=== PATIENT | female | born 1955 | race Caucasian/White ===

== ENCOUNTER → 2022-10-23 | Outpatient (CLI) | payer MEDICARE, OTHER ==
[2022-10-23 11:54] LABS: African American GFR (CKD) >90 (>60 ml/min/1.73 sqM); Blood Urea Nitrogen 19 mg/dL (7-17); Non-African American GFR(CKD) >90 (>60 ml/min/1.73 sqM)
--- NOTE | 2022-10-23 14:34 | CT ---
EXAMINATION TYPE: CT cervical spine wo/w con DATE OF EXAM: 10/23/2022 COMPARISON: None HISTORY: neck and low back pain. hx of sxs on both. CT DLP: combined 2708.90. mGycm Contrast: Isovue 300 100 mL Unenhanced followed by contrast CT of the cervical spine was performed with bone and soft tissue wind ow settings submitted. Coronal and sagittal reconstruction is obtained. C2-3: Within normal limits C3-4: Postsurgical changes of anterior cervical discectomy and fusion. Intervertebral body spacers in place as well as anterior fixation plate. There is normal alignment. Decompressive laminectomy also noted. Pedicular screws are also in place. C4-5:Postsurgical changes of anterior cervical discectomy and fusion. Intervertebral body spacers in place as well as anterior fixation plate. There is normal alignment. Decompressive laminectomy also n oted. Pedicular screws are also in place. C5-6: There is postsurgical change of decompressive laminectomy with pedicular screws in place. There is grade 1 anterolisthesis of C5 on C6 of 4 mm. I do not see evidence for central stenosis or disc h erniation. C6-7: There is mild degenerative disc space narrowing with ventral and dorsal spondylosis. There is m ild loss of height involving the superior endplate of C7 which appears to be chronic in nature. There is ventral spondylosis. Mild posterior disc bulge without herniation or central stenosis. C7-T1: Within normal limits IMPRESSION: 1. Postoperative changes as discussed above 2. Anterior subluxation of C5 on C6 of 4 mm. A mild loss of height superior endplate of C7 which appe ars to be chronic in nature.
--- NOTE | 2022-10-23 14:41 | CT ---
EXAMINATION TYPE: CT lumbar spine wo/w con DATE OF EXAM: 10/23/2022 COMPARISON: None HISTORY: neck and low back pain. hx of sxs on both CT DLP: combined 2708.90 mGycm Automated exposure control for dose reduction was used. CONTRAST: CT scan of the lumbar is performed without and with IV Contrast, patient injected with 100 mL of Isov ue 300. Enhanced CT of the lumbar spine was performed. Bone and soft tissue window settings are submitted as well as coronal and sagittal reconstructions. L1-L2: There is mild disc desiccation. Inferior endplate Schmorl node is seen at L1. Mild posterior d isc bulge without herniation or central stenosis. L2-L3: There is evidence of vacuum change with severe degenerative disc disease. Degenerative endplat e sclerosis seen. Pedicular screws are in place. Streak artifact limits evaluation. I do not see evid ence for definite central stenosis or disc herniation. L3-L4: Severe degenerative disc disease. Decompressive laminectomy. Pedicular screws resulting in ext ensive beam hardening artifact. Alignment is anatomic. No definite evidence for recurrent central rosalinda nosis or disc herniation. L4-L5: Decompressive laminectomy with discectomy change. Intervertebral spacer is in place. Pedicular screws noted. There appears to be grade 1 retrolisthesis of L4 and L5 of 5 mm. Streak artifact limit s evaluation. No definite central stenosis. L5-S1: Discectomy change with pedicular screws. Intervertebral body spacers in place with normal alig nment. Streak artifact limits evaluation. No definite recurrent central stenosis or disc herniation s een. IMPRESSION: 1. Stents of postoperative change with limiting. Hardening artifact.
== END | disposition home or self-care (01) ==
LOC: RADCTMAIN 11:09
PROVIDERS: ATTEND Physical Medicine & Rehabilitation Pain Medicine
DX: S13.160A Subluxation of C5/C6 cervical vertebrae, initial encounter (principal); M96.1 Postlaminectomy syndrome, not elsewhere classified; R29.890 Loss of height; R20.8 Other disturbances of skin sensation
CPT/HCPCS: 82565; 84520; 72127; 72133; 36415; Q9967

== ENCOUNTER 2022-11-20 11:42 | Day surgery (SDC) | payer MEDICARE, OTHER ==
[~2022-11-20 11:42] MED LIST: DEXAMETHASONE SOD PHOSPHATE 4 MG/ML 1 ML VIAL IV ONE; LACTATED RINGERS 1,000 ML IV SCH; LIDOCAINE 1% (10MG/ML) FOR IV START INTRADERMA PRN; ONDANSETRON 4 MG/2 ML VIAL IVP ONE; Pre Op ABX Message 1 EACH MISC MISCELLANE ONE; droPERidol 5 MG/2 ML VIAL IVP ONE
[2022-11-20] MEDS ORDERED: fentaNYL (PF) 50 MCG/ML 2 ML AMP ONE (12:55)
[2022-11-20] MEDS ORDERED: PROPOFOL 10 MG/ML 20 ML VIAL IV ONE (12:55)
[2022-11-20] MEDS ORDERED: LIDOCAINE 2% INJ 20 MG/ML (2 ML VIAL) ONE (12:55)
[2022-11-20] MEDS ORDERED: PHENYLEPHRINE-0.9% NACL SYG 1,000 MCG/10 ML SYRINGE ONE (12:55)
[2022-11-20] MEDS ORDERED: SUCCINYLCHOLINE CHLORIDE 200 MG/10 ML VIAL IV ONE (12:55)
[2022-11-20] MEDS ORDERED: SODIUM CHLORIDE 0.9% 50 ML with ceFAZolin 2,000 MG IV ONE ×2 (13:00)
[2022-11-20] MEDS ORDERED: ceFAZolin 1,000 MG VIAL ONE (13:01)
[2022-11-20] MEDS ORDERED: SODIUM CHLORIDE 0.9% 100 ML BAG ONE (13:01)
[2022-11-20 15:22] VITALS: TEMP 98
[2022-11-20] MEDS: HYDROmorphone 0.5 MG/0.5 ML SYRINGE IVP PRN ×4 (15:24→15:46)
[2022-11-20] MEDS ORDERED: LACTATED RINGERS 1,000 ML IV ONE (15:41)
[2022-11-20 16:16] VITALS: RESP 16
[2022-11-20 16:59] VITALS: BP 128/70; PULSE 76
--- NOTE | 2022-11-20 22:52 | OP ---
OPERATIVE REPORT DATE OF SERVICE : 11/20/2022 PREOPERATIVE DIAGNOSES: 1. Ruptured silicone breast implants. 2. Bilateral severe capsular contracture of breast. 3. Acquired deformity of right and left reconstructed breasts. 4. Personal history of breast cancer. POSTOPERATIVE DIAGNOSES: 1. Ruptured right breast implant. 2. Acquired deformity of right and left reconstructed breasts. 3. Severe bilateral breast capsular contractures. 4. Personal history of breast cancer. OPERATIVE PROCEDURES: 1. Remove ruptured right breast implant and capsule. 2. Removal of left breast implant. 3. Revision of right reconstructed breast. 4. Revision left reconstructed breast. 5. Delayed reconstruction right breast with insertion of tissue science professor and subsequent outpatient expansion. 6. Delayed reconstruction left breast with insertion of tissue science professor, subsequent outpatient expansion. OPERATIVE INDICATIONS: The patient is a 67-year-old female who underwent bilateral mastectomy procedures in 2010 with severe postoperative complications and sepsis. She required several surgeries, she suffered with misshapen reconstructed breasts for some time. She presented to my office due to acquired deformities. She has very tight capsular contractures of the right and left reconstructed breast. Clinically on exam, the breast implants are ruptured due to the distorted shape. The patient has been counseled as to the surgery due to the severe capsular contracture, the breasts are very high with complete loss of the lower one half of the reconstructed breast, which cannot be recreated without further expansion. The patient is aware her breast implants require removal and she will require additional tissue expansion to obtain proper coverage for breast reconstruction. The patient is aware of other options and has elected to proceed with the reconstructive path. She has elected to proceed with today's surgery and is aware of potential risks and complications including, but not limited to, hematoma, seroma, wound infection, healing problems, among others. She has requested to perform the surgery. OPERATIVE PROCEDURE SUMMARY: The patient was seen in the preoperative area, markings made, procedure reviewed. All questions were answered. She was transported to the operating room where she was placed in supine position following induction of general endotracheal anesthesia. Patient was prepped and draped in usual fashion. The surgery was initiated on the right side and then high in the prior transverse mastectomy scar, a line was drawn here in the middle third of the scar, incision made following the line present, dividing the skin in full-thickness fashion with 10 blade scalpel followed by cauterization to divide subcutaneous tissue and then elevate skin and subcutaneous tissue off the underlying muscle flap and scar layer tissue. This dissection was extensive to revise contour irregularities and contracture from the scar. Once this was completed, a very low transverse incision was made through the muscle flap scar contracture layer exposing the implant. The implant was ruptured. Towels were placed around the site in the implant and ruptured contents removed, as much capsule as possible was excised with cautery and the capsular structure was sent to pathology separately. Implants were also sent to pathology today. Hemostasis maintained with cautery while dissecting the operating, irrigation was now performed, pulsed irrigation with several liters of fluid. Gloves were changed as well as towels removed that were soiled with silicone extravasation. The site was packed open with saline moistened laparotomy sponges. Attention was turned towards the left side in similar fashion. Transverse incision, diagram was drawn following the patient's transverse mastectomy scar in the middle one third dividing the skin in full-thickness fashion. A 10-blade scalpel used, cauterization to divide subcutaneous tissue until reaching the muscle flap scar layer. Skin and subcutaneous tissue flaps were elevated off this, extensive dissection performed to lose as much of scar tissue from the skin subcutaneous tissue as possible to optimize reconstruction. Once this was completed, very low transverse incision was made with muscle flap scar layer exposing the implant. The implant clearly did not appear normal, but did not have extravasation of silicone, the implant was removed intact without leakage of silicone, multiple, extensive dissections were now performed on the left and right side releasing the capsular contracture. At first, the capsular layer where it joined the chest wall circumferentially and then multiple cruciate incisions made through the capsular structure on both the right and left side, hemostasis maintained with cautery while dissecting, irrigation was performed with pulsed irrigation unit on the left side and again on the right side. All tissue remained and appeared healthy. There was no evidence of remaining silicone on either site. The additional dissection was performed to optimize positioning of the expanders. This was extensive dissection inferiorly and medially on both sides with cautery. Once completed, the cavities were sized. Gloves changed again and tissue expanders were opened on the field. Both of the expanders were from a [employer] tissue science professor line model 133S FV 400 mL, reference #[id number]. The left-sided serial number was [id number], and the right-sided serial number was [id number]. Each science professor was opened on the field, irrigated with saline, all air extracted. Initially 100 mL of saline instilled in each science professor, they were placed for testing reconstructive cavity. Additional dissection was required on each side to obtain symmetry and optimal position. Once this was achieved that the expanders were then secured in position to the chest wall using the 3 inferior suture tabs and 2-0 Vicryl suture. With that complete, a 19 round Carroll channel drain was opened on the field and placed in the surgical field on the right and left reconstructed breast site, brought through separate stab incisions. Right and left anterior lateral chest wall sutures placed with 2-0 Prolene, cut to appropriate like. The remaining muscle flap tissue on each side was secured to the inferior skin subcutaneous tissue flap as these flaps had excellent viability and thickness. These were closed using interrupted 3-0 Vicryl sutures covering each science professor. The deep dermis was then approximated using inverted interrupted 4-0 Monocryl followed by closure of superficial dermis with epidermis running 5-0 Prolene end-to-side. Drains were connected to close bulb suction. Surgical field was now cleansed with saline and dried. The reconstruction sites were inspected . At this point, an additional 100 mL was added to each science professor, appeared the optimal volume making a final volume in each science professor 200 mL, 0.9 normal saline. The bandages were now placed using Kerlix squares, drain sponges, secured with 3-0 Medipore tape and ABD pad over the upper pole of each reconstructed breast followed by positioning 4-inch Jonh bandage to provide slight downward compression. The patient was THEN awakened from her anesthetic, extubated, and transferred to recovery room in good condition with stable vital signs. ESTIMATED BLOOD LOSS: For the procedure was 50 mL. COMPLICATIONS: There were no complications. The final fill tissue science professor was 200 mL of 0.9 normal saline. MMODL / IJN: [id number] /
== END 2022-11-20 17:05 | disposition home or self-care (01) ==
LOC: OR 11:42
PROVIDERS: ATTEND Plastic Surgery
DX: T85.49XA Other mechanical complication of breast prosthesis and implant, initial encounter (principal); Z85.3 Personal history of malignant neoplasm of breast; I10 Essential (primary) hypertension; E78.5 Hyperlipidemia, unspecified; J44.9 Chronic obstructive pulmonary disease, unspecified; K21.9 Gastro-esophageal reflux disease without esophagitis; Z79.899 Other long term (current) drug therapy
CPT/HCPCS: 19380; 14000; C1889; J0330; J1100; J2405; J0690; J3010; J2704; J1170; J2001; J2371; 88300; 88305

== ENCOUNTER 2022-12-08 09:43 | Emergency (ER) | payer MEDICARE, OTHER ==
[2022-12-08 10:00] VITALS: RESP 18
[2022-12-08] MEDS ORDERED: IBUPROFEN 600 MG TAB PO STA (10:51)
[2022-12-08] MEDS ORDERED: ACETAMINOPHEN TAB 500 MG TAB PO STA (10:51)
[2022-12-08] MEDS ORDERED: cefTRIAXone IN SWFI 1,000 MG/10 ML SYRINGE IVP STA (10:51)
--- NOTE | 2022-12-08 11:20 | ED ---
General Adult HPI - General Chief complaint: Recheck/Abnormal Lab/Rx Stated complaint: Redness around Drain tubs,post op 11/28 Time Seen by Provider: 12/08/22 09:55 Source: patient, RN notes reviewed, old records reviewed Mode of arrival: ambulatory Limitations: no limitations - History of Present Illness Initial comments: This is a 67-year-old female that presents emergency Department with some redness and pain and drainage around the left drain in the breast. Patient had breast reconstructive surgery on November 28. Patient had a previous mastectomy bilaterally. Patient states she's also had a low-grade fever and just overall is feeling a little worse. Patient denies any difficulty breathing first breath per patient denies any abdominal pain. - Related Data Home Medications Medication Instructions Recorded Confirmed Albuterol Inhaler [Ventolin Hfa 90 mcg INHALATION DAILY PRN 11/16/22 11/20/22 Inhaler] Calcium Carbonate/Vitamin D3 1 tab PO QAM 11/16/22 11/20/22 [Calcium 600 mg-D3 20 mcg (800 unit)] Exipure 300 mg PO QAM 11/16/22 11/20/22 Gabapentin 600 mg PO TID 11/16/22 11/20/22 HYDROcodone/APAP 5-325MG [[place] 1 tab PO BID PRN 11/16/22 11/20/22 5-325] Morphine Sulfate ER [Ms Contin] 15 mg PO BID 11/16/22 11/20/22 Multivitamin/Iron/Folic Acid 1 tab PO QAM 11/16/22 11/20/22 [Centrum Adults Tablet] Omeprazole [PriLOSEC] 40 mg PO DAILY PRN 11/16/22 11/20/22 Simvastatin 10 mg PO HS 11/16/22 11/20/22 Spironolactone 50 mg PO BID 11/16/22 11/20/22 Tamsulosin HCl [Flomax] 0.4 mg PO QAM 11/16/22 11/20/22 Umeclidinium Squires [Incruse 1 puff INHALATION DAILY PRN 11/16/22 11/20/22 Ellipta] buPROPion HCL [buPROPion HCL SR] 100 mg PO BID 11/16/22 11/20/22 hydroCHLOROthiazide 25 mg PO QAM 11/16/22 11/20/22 methocarbamoL [Methocarbamol] 750 mg PO TID 11/16/22 11/20/22 rOPINIRole HCL [Requip] 1 mg PO HS 11/16/22 11/20/22 Previous Rx's Medication Instructions Recorded HYDROcodone/APAP 5-325MG [[place] 1 tab PO Q6HR PRN 7 Days #28 tab 11/20/22 5-325] Bacitracin Zinc Oint 1 applic TOPICAL BID #28 gm 12/08/22 Sulfamethox-Tmp 800-160Mg [Bactrim 1 each PO Q12HR #20 tab 12/08/22 DS 800-160 mg] Allergies Allergy/AdvReac Type Severity Reaction Status Date / Time pollen extracts Allergy Dyspnea Verified 12/08/22 10:00 Review of Systems ROS Statement: Those systems with pertinent positive or pertinent negative responses have been documented in the HPI. ROS Other: All systems not noted in ROS Statement are negative. Past Medical History Past Medical History: Asthma, Cancer, COPD, Hypertension Additional Past Medical History / Comment(s): breast cancer 2009 History of Any Multi-Drug Resistant Organisms: None Reported, MRSA Date of last positivie culture/infection: 2017 Past Surgical History: Back Surgery, Breast Surgery, Joint Replacement, Orthopedic Surgery Past Psychological History: No Psychological Hx Reported Smoking Status: Former smoker Past Alcohol Use History: Occasional Past Drug Use History: Marijuana General Exam - General Exam Comments Initial Comments: GENERAL: Patient is well-developed and well-nourished. Patient is nontoxic and well- hydrated and is in mild distress. ENT: Neck is soft and supple. No significant lymphadenopathy is noted. Oropharynx is clear. Moist mucous membranes. Neck has full range of motion without eliciting any pain. EYES: The sclera were anicteric and conjunctiva were pink and moist. Extraocular movements were intact and pupils were equal round and reactive to light. Eyelids were unremarkable. PULMONARY: Unlabored respirations. Good breath sounds bilaterally. No audible rales rhonchi or wheezing was noted. CARDIOVASCULAR: There is a regular rate and rhythm without any murmurs gallops or rubs. Patient's left and right breasts have drained out of the left drain is circled by erythema and some tenderness and some drainage ABDOMEN: Soft and nontender with normal bowel sounds. SKIN: Skin is clear with no lesions or rashes and otherwise unremarkable. NEUROLOGIC: Patient is alert and oriented x3. Cranial nerves II through XII are grossly intact. Motor and sensory are also intact. Normal speech, volume and content. Symmetrical smile. MUSCULOSKELETAL: Normal extremities with adequate strength and full range of motion. LYMPHATICS: No significant lymphadenopathy is noted PSYCHIATRIC: Normal psychiatric evaluation. Limitations: no limitations Course Vital Signs 12/08/22 12/08/22 12/08/22 09:52 11:51 12:30 Temperature 99.9 F H 99.5 F Pulse Rate 91 95 92 Respiratory 18 18 Rate Blood Pressure 101/66 128/69 103/60 O2 Sat by Pulse 97 97 95 Oximetry Medical Decision Making - Medical Decision Making EKG was interpreted by myself EKG shows a sinus rhythm at 96 bpm FL interval is 170 [id number] QT interval 311 QTC is 364. Patient's EKG shows no ST segment elevation or depression Was pt. sent in by a medical professional or institution (, PA, UTILITIES GROUND WORKER, urgent care, hospital, or [facility]...) When possible be specific @ -No Did you speak to anyone other than the patient for history (EMS, parent, family, police, friend...)? What history was obtained from this source @ -No Did you review nursing and triage notes (agree or disagree)? Why? @ -I reviewed and agree with nursing and triage notes Were old charts reviewed (outside hosp., previous admission, EMS record, old EKG, old radiological studies, urgent care reports/EKG's, [facility] records)? Report findings @ -No old charts were reviewed Differential Diagnosis (chest pain, altered mental status, abdominal pain women, abdominal pain men, vaginal bleeding, weakness, fever, dyspnea, syncope, headache, dizziness, GI bleed, back pain, seizure, CVA, palpatations, mental health, musculoskeletal)? @ -Differential Fever: Pneumonia, viral URI, endocarditis, myocarditis, pericarditis, otitis, sinusi tis, peritonsillar Abscess, retropharyngeal Abscess, epiglottitis, peritonitis, appendicitis, Danni cystitis, diverticulitis, hepatitis, colitis, UTI, PID, TOA, pyelonephritis, prostatitis, epididymitis, meningitis, encephalitis, pulmonary embolism, CVA, thyroid storm, pancreatitis, adrenal crisis, cavernous sinus thrombosis, this is not meant to be an all-inclusive list. EKG interpreted by me (3pts min.). @ -As above X-rays interpreted by me (1pt min.). @ -Chest x-ray shows no acute abnormality CT interpreted by me (1pt min.). @ -None done U/S interpreted by me (1pt. min.). @ -None done What testing was considered but not performed or refused? (CT, X-rays, U/S, labs)? Why? @ -None What meds were considered but not given or refused? Why? @ -None Did you discuss the management of the patient with other professionals (aparna dove i.e. , PA, UTILITIES GROUND WORKER, lab, RT, psych nurse, psychosocial rehabilitation counselor, composition instructor, teacher, chemical instrumentation officer, human services case manager)? Give summary @ -We consulted with Dr. Monk and he wanted the patient to follow-up on Sunday and have the patient placed on Bactrim and give the patient some bacitracin Was smoking cessation discussed for >3mins.? @ -No Was critical care preformed (if so, how long)? @ -No Were there social determinants of health that impacted care today? How? (Homelessness, low income, unemployed, alcoholism, drug addiction, transportation, low edu. Level, literacy, decrease access to med. care, prison, rehab)? @ -No Was there de-escalation of care discussed even if they declined (Discuss DNR or withdrawal of care, Hospice)? DNR status @ -No What co-morbidities impacted this encounter? (DM, HTN, Smoking, COPD, CAD, Cancer, CVA, ARF, Chemo, Hep., AIDS, mental health diagnosis, sleep apnea, morbid obesity)? @ -None Was patient admitted / discharged? Hospital course, mention meds given and route, prescriptions, significant lab abnormalities, going to OR and other per tinent info. @ -Area around the drain on the left looked infected with an early cellulitis. I gave the patient 2 g of Rocephin. I will send the patient home with Bactroban and bacitracin Undiagnosed new problem with uncertain prognosis? @ -No Drug Therapy requiring intensive monitoring for toxicity (Heparin, Nitro, Insu tank, Cardizem)? @ -No Were any procedures done? @ -No Diagnosis/symptom? @ -Cellulitis Acute, or Chronic, or Acute on Chronic? @ -Acute Uncomplicated (without systemic symptoms) or Complicated (systemic symptoms)? @ -Complicated Side effects of treatment? @ -No Exacerbation, Progression, or Severe Exacerbation? @ -No Poses a threat to life or bodily function? How? (Chest pain, [place], [place], pneumonia, PE, COPD, DKA, ARF, appy, cholecystitis, CVA, Diverticulitis, Homicidal, Suicidal, threat to staff... and all critical care pts) @ -No - Lab Data Result diagrams: 12/08/22 11:21 12/08/22 11:21 Lab Results 12/08/22 12/08/22 12/08/22 Range/Units 11:21 11:21 11:21 WBC 10.5 (3.8-10.6) k/uL RBC 4.29 (3.80-5.40) m/uL Hgb 14.0 (11.4-16.0) gm/dL Hct 40.7 (34.0-46.0) % MCV 94.9 (80.0-100.0) fL MCH 32.7 (25.0-35.0) pg MCHC 34.5 (31.0-37.0) g/dL RDW 12.8 (11.5-15.5) % Plt Count 197 (150-450) k/uL MPV 6.9 Neutrophils % 84 % Lymphocytes % 9 % Monocytes % 3 % Eosinophils % 3 % Basophils % 1 % Neutrophils # 8.8 H (1.3-7.7) k/uL Lymphocytes # 1.0 (1.0-4.8) k/uL Monocytes # 0.3 (0-1.0) k/uL Eosinophils # 0.3 (0-0.7) k/uL Basophils # 0.1 (0-0.2) k/uL PT 10.1 (9.0-12.0) sec INR 0.9 (<1.2) APTT 24.2 (22.0-30.0) sec Sodium 136 L (137-145) mmol/L Potassium 4.3 (3.5-5.1) mmol/L Chloride 100 (98-107) mmol/L Carbon Dioxide 27 (22-30) mmol/L Anion Gap 9 mmol/L BUN 19 H (7-17) mg/dL Creatinine 0.58 (0.52-1.04) mg/dL Est GFR (CKD-EPI)AfAm >90 (>60 ml/min/1.73 sqM) Est GFR (CKD-EPI)NonAf >90 (>60 ml/min/1.73 sqM) Glucose 85 (74-99) mg/dL Plasma Lactic Acid Navarro (0.7-2.0) mmol/L Calcium 9.3 (8.4-10.2) mg/dL Total Bilirubin 0.8 (0.2-1.3) mg/dL AST 32 (14-36) U/L ALT 23 (4-34) U/L Alkaline Phosphatase 71 (38-126) U/L Total Protein 7.7 (6.3-8.2) g/dL Albumin 4.5 (3.5-5.0) g/dL 12/08/22 Range/Units 11:21 WBC (3.8-10.6) k/uL RBC (3.80-5.40) m/uL Hgb (11.4-16.0) gm/dL Hct (34.0-46.0) % MCV (80.0-100.0) fL MCH (25.0-35.0) pg MCHC (31.0-37.0) g/dL RDW (11.5-15.5) % Plt Count (150-450) k/uL MPV Neutrophils % % Lymphocytes % % Monocytes % % Eosinophils % % Basophils % % Neutrophils # (1.3-7.7) k/uL Lymphocytes # (1.0-4.8) k/uL Monocytes # (0-1.0) k/uL Eosinophils # (0-0.7) k/uL Basophils # (0-0.2) k/uL PT (9.0-12.0) sec INR (<1.2) APTT (22.0-30.0) sec Sodium (137-145) mmol/L Potassium (3.5-5.1) mmol/L Chloride (98-107) mmol/L Carbon Dioxide (22-30) mmol/L Anion Gap mmol/L BUN (7-17) mg/dL Creatinine (0.52-1.04) mg/dL Est GFR (CKD-EPI)AfAm (>60 ml/min/1.73 sqM) Est GFR (CKD-EPI)NonAf (>60 ml/min/1.73 sqM) Glucose (74-99) mg/dL Plasma Lactic Acid [place]arro 1.1 (0.7-2.0) mmol/L Calcium (8.4-10.2) mg/dL Total Bilirubin (0.2-1.3) mg/dL AST (14-36) U/L ALT (4-34) U/L Alkaline Phosphatase (38-126) U/L Total Protein (6.3-8.2) g/dL Albumin (3.5-5.0) g/dL Disposition Clinical Impression: Cellulitis of drainage site following surgery Disposition: HOME SELF-CARE Condition: Good Prescriptions: Bacitracin Zinc Oint 1 applic TOPICAL BID #28 gm Sulfamethox-Tmp 800-160Mg [Bactrim DS 800-160 mg] 1 each PO Q12HR #20 tab Is patient prescribed a controlled substance at d/c from ED?: No Referrals: Jeremie Jacobs MD [STAFF PHYSICIAN] - 12/12/22 10:00 am (Keep record of amount of drainage and take to appointment. ) Puneet Ren DO [Primary Care Provider] - 1-2 days Time of Disposition: 12:44
[2022-12-08] MEDS: SODIUM CHLORIDE 0.9% 500 ML 500 ML IV SCH ×2 (11:47→11:49)
[2022-12-08 11:53] LABS: Basophils # (A) 0.1 k/uL (0-0.2); Basophils % (A) 1 %; Eosinophils # (A) 0.3 k/uL (0-0.7); Eosinophils % (A) 3 %; HCT 40.7 % (34.0-46.0); Lymphocytes % (A) 9 %; MCH 32.7 pg (25.0-35.0); MCHC 34.5 g/dL (31.0-37.0); MCV 94.9 fL (80.0-100.0); Mean Platelet Volume 6.9; Monocytes # (A) 0.3 k/uL (0-1.0); Monocytes % (A) 3 %; Neutrophils # (A) 8.8 k/uL (1.3-7.7); Neutrophils % (A) 84 %; Platelet Count 197 k/uL (150-450); RBC 4.29 m/uL (3.80-5.40); RDW 12.8 % (11.5-15.5); WBC 10.5 k/uL (3.8-10.6)
[2022-12-08 12:02] LABS: ALT 23 U/L (4-34); AST 32 U/L (14-36); African American GFR (CKD) >90 (>60 ml/min/1.73 sqM); Albumin 4.5 g/dL (3.5-5.0); Alkaline Phosphatase 71 U/L (38-126); Anion Gap 9 mmol/L; Blood Urea Nitrogen 19 mg/dL (7-17); Calcium 9.3 mg/dL (8.4-10.2); Carbon Dioxide 27 mmol/L (22-30); Chloride 100 mmol/L (98-107); Glucose 85 mg/dL (74-99); Non-African American GFR(CKD) >90 (>60 ml/min/1.73 sqM); Potassium 4.3 mmol/L (3.5-5.1); Sodium 136 mmol/L (137-145); Total Bilirubin 0.8 mg/dL (0.2-1.3); Total Protein 7.7 g/dL (6.3-8.2)
[2022-12-08 12:16] LABS: INR 0.9 (<1.2); Partial Thromboplastin Time 24.2 sec (22.0-30.0); Prothrombin Time 10.1 sec (9.0-12.0)
--- NOTE | 2022-12-08 12:16 | XR ---
EXAMINATION TYPE: XR chest 2V DATE OF EXAM: 12/08/2022 COMPARISON: NONE HISTORY: Shortness of breath TECHNIQUE: Frontal and lateral views of the chest are obtained. FINDINGS: Scattered senescent parenchymal changes noted. Hyperinflation compatible with COPD. No evidence for infiltrate. No evidence for atelectasis. Heart size is stable. Mediastinal structures are stable and grossly unremarkable. No evidence for hilar prominence. Degenerative changes dorsal spine. IMPRESSION: 1. No evidence for acute pulmonary disease.
[2022-12-08 12:36] VITALS: BP 103/60; PULSE 92; TEMP 99.5
== END 2022-12-08 13:17 | disposition home or self-care (01) ==
LOC: EC 09:43
DX: N61.0 Mastitis without abscess (principal); T81.49XA Infection following a procedure, other surgical site, initial encounter; I10 Essential (primary) hypertension; J44.9 Chronic obstructive pulmonary disease, unspecified; F12.90 Cannabis use, unspecified, uncomplicated; Z79.899 Other long term (current) drug therapy; Z91.048 Other nonmedicinal substance allergy status; Z87.891 Personal history of nicotine dependence; Z85.3 Personal history of malignant neoplasm of breast
CPT/HCPCS: 99284; 96365; 96375; 36415; 93005; 80053; 83605; 85025; 85610; 85730; 87040; 71046; J0696

== ENCOUNTER 2022-12-09 10:13 | Emergency (ER) | payer MEDICARE, OTHER ==
[2022-12-09] MEDS ORDERED: BACITRACIN OINT 1 EACH PACKET TOPICAL ONE (10:52)
[2022-12-09] MEDS ORDERED: cefTRIAXone IN SWFI 1,000 MG/10 ML SYRINGE IVP STA (10:58)
[2022-12-09 11:41] LABS: HCT 37.6 % (34.0-46.0); HGB 12.9 gm/dL (11.4-16.0); MCH 32.2 pg (25.0-35.0); MCHC 34.2 g/dL (31.0-37.0); MCV 94.1 fL (80.0-100.0); Mean Platelet Volume 7.4; Platelet Count 177 k/uL (150-450); RDW 12.8 % (11.5-15.5)
[2022-12-09 11:51] LABS: ALT 30 U/L (4-34); AST 38 U/L (14-36); African American GFR (CKD) 75 (>60 ml/min/1.73 sqM); Albumin 3.4 g/dL (3.5-5.0); Alkaline Phosphatase 71 U/L (38-126); Anion Gap 13 mmol/L; Blood Urea Nitrogen 27 mg/dL (7-17); Calcium 8.2 mg/dL (8.4-10.2); Carbon Dioxide 21 mmol/L (22-30); Chloride 99 mmol/L (98-107); Glucose 104 mg/dL (74-99); Non-African American GFR(CKD) 65 (>60 ml/min/1.73 sqM); Potassium 3.8 mmol/L (3.5-5.1); Sodium 133 mmol/L (137-145); Total Protein 6.2 g/dL (6.3-8.2)
[2022-12-09 12:58] LABS: Band Neutrophils % 3 %; Eosinophils # (M) 0.18 k/uL (0-0.7); Lymphocytes # (M) 1.26 k/uL (1.0-4.8); Monocytes # (M) 0.72 k/uL (0-1.0); Neutrophils % (M) 85 %; Nucleated Red Blood Cells 0 /100 WBC (0-0); Total Cells Counted 100
[2022-12-09] MEDS ORDERED: RX INFO: IV CONTRAST WAS GIVEN 1 EACH MISC MISCELLANE PRN (13:00)
[2022-12-09 13:25] VITALS: TEMP 98.1
[2022-12-09] MEDS ORDERED: SODIUM CHLORIDE 0.9% 1,000 ML IV STA (13:25)
--- NOTE | 2022-12-09 13:38 | ED ---
General Adult HPI - General Chief complaint: Recheck/Abnormal Lab/Rx Stated complaint: Post op issues Time Seen by Provider: 12/09/22 10:30 Source: patient, RN notes reviewed, old records reviewed Mode of arrival: wheelchair Limitations: no limitations - History of Present Illness Initial comments: This is a 67-year-old female who is back in the emergency department after having been seen in the emergency department yesterday for redness around it dra arellano. Patient states the pain is gotten worse even though she got antibiotics asleep and was started on Bactrim as an outpatient. Patient came back today and the redness was improved but the pain and discomfort were worse. Patient states she has low-grade fevers and the drainage is getting worse today than it was yesterday. - Related Data Home Medications Medication Instructions Recorded Confirmed Albuterol Inhaler [Ventolin Hfa 90 mcg INHALATION DAILY PRN 11/16/22 11/20/22 Inhaler] Calcium Carbonate/Vitamin D3 1 tab PO QAM 11/16/22 11/20/22 [Calcium 600 mg-D3 20 mcg (800 unit)] Exipure 300 mg PO QAM 11/16/22 11/20/22 Gabapentin 600 mg PO TID 11/16/22 11/20/22 HYDROcodone/APAP 5-325MG [Bartlett 1 tab PO BID PRN 11/16/22 11/20/22 5-325] Morphine Sulfate ER [Ms Contin] 15 mg PO BID 11/16/22 11/20/22 Multivitamin/Iron/Folic Acid 1 tab PO QAM 11/16/22 11/20/22 [Centrum Adults Tablet] Omeprazole [PriLOSEC] 40 mg PO DAILY PRN 11/16/22 11/20/22 Simvastatin 10 mg PO HS 11/16/22 11/20/22 Spironolactone 50 mg PO BID 11/16/22 11/20/22 Tamsulosin HCl [Flomax] 0.4 mg PO QAM 11/16/22 11/20/22 Umeclidinium Joseph [Incruse 1 puff INHALATION DAILY PRN 11/16/22 11/20/22 Ellipta] buPROPion HCL [buPROPion HCL SR] 100 mg PO BID 11/16/22 11/20/22 hydroCHLOROthiazide 25 mg PO QAM 11/16/22 11/20/22 methocarbamoL [Methocarbamol] 750 mg PO TID 11/16/22 11/20/22 rOPINIRole HCL [Requip] 1 mg PO HS 11/16/22 11/20/22 Previous Rx's Medication Instructions Recorded HYDROcodone/APAP 5-325MG [Bartlett 1 tab PO Q6HR PRN 7 Days #28 tab 11/20/22 5-325] Bacitracin Zinc Oint 1 applic TOPICAL BID #28 gm 12/08/22 Sulfamethox-Tmp 800-160Mg [Bactrim 1 each PO Q12HR #20 tab 12/08/22 DS 800-160 mg] Allergies Allergy/AdvReac Type Severity Reaction Status Date / Time pollen extracts Allergy Dyspnea Verified 12/09/22 10:25 Review of Systems ROS Statement: Those systems with pertinent positive or pertinent negative responses have been documented in the HPI. ROS Other: All systems not noted in ROS Statement are negative. Past Medical History Past Medical History: Asthma, Cancer, COPD, Hypertension Additional Past Medical History / Comment(s): breast cancer 2009 History of Any Multi-Drug Resistant Organisms: None Reported, MRSA Date of last positivie culture/infection: 2017 Past Surgical History: Back Surgery, Breast Surgery, Joint Replacement, Orthopedic Surgery Past Psychological History: No Psychological Hx Reported Smoking Status: Former smoker Past Alcohol Use History: Occasional Past Drug Use History: Marijuana General Exam - General Exam Comments Initial Comments: GENERAL: Patient is well-developed and well-nourished. Patient is nontoxic and well-h ydrated and is in mild distress. ENT: Neck is soft and supple. No significant lymphadenopathy is noted. Oropharynx is clear. Moist mucous membranes. Neck has full range of motion without eliciting any pain. EYES: The sclera were anicteric and conjunctiva were pink and moist. Extraocular mov ements were intact and pupils were equal round and reactive to light. Eyelids were unremarkable. PULMONARY: Unlabored respirations. Good breath sounds bilaterally. No audible rales rhonchi or wheezing was noted. CARDIOVASCULAR: There is a regular rate and rhythm without any murmurs gallops or rubs. Under the left breast is a drain was some mild redness around it and some drainage. Area around the drain is tender as well. ABDOMEN: Soft and nontender with normal bowel sounds. SKIN: Skin is clear with no lesions or rashes and otherwise unremarkable. NEUROLOGIC: Patient is alert and oriented x3. Cranial nerves II through XII are grossly intact. Motor and sensory are also intact. Normal speech, volume and content. Symmetrical smile. MUSCULOSKELETAL: Normal extremities with adequate strength and full range of motion. PSYCHIATRIC: Normal psychiatric evaluation. Limitations: no limitations Course Vital Signs 12/09/22 12/09/22 12/09/22 10:25 13:23 13:50 Temperature 97.9 F 98.1 F Pulse Rate 83 82 Respiratory 15 18 Rate Blood Pressure 92/62 86/56 96/66 O2 Sat by Pulse 99 96 Oximetry 12/09/22 12/09/22 14:27 14:34 Temperature Pulse Rate 63 85 Respiratory 14 16 Rate Blood Pressure 99/62 99/58 O2 Sat by Pulse 100 99 Oximetry Medical Decision Making - Medical Decision Making Was pt. sent in by a medical professional or institution (, PA, HAND ROLLER ENGRAVER, urgent care, hospital, or jail...) When possible be specific @ -No Did you speak to anyone other than the patient for history (EMS, parent, family, police, friend...)? What history was obtained from this source @ -No Did you review nursing and triage notes (agree or disagree)? Why? @ -I reviewed and agree with nursing and triage notes Were old charts reviewed (outside hosp., previous admission, EMS record, old EKG, old radiological studies, urgent care reports/EKG's, jail records)? Report findings @ -I reviewed prior lab work and charts on this patient Differential Diagnosis (chest pain, altered mental status, abdominal pain women, abdominal pain men, vaginal bleeding, weakness, fever, dyspnea, syncope, headache, dizziness, GI bleed, back pain, seizure, CVA, palpatations, mental health, musculoskeletal)? @ -Differential Fever: Pneumonia, viral URI, endocarditis, myocarditis, pericarditis, otitis, sinusitis, peritonsillar Abscess, retropharyngeal Abscess, epiglottitis, peritonitis, appendicitis, Danni cystitis, diverticulitis, hepatitis, colitis, UTI, PID, TOA, pyelonephritis, prostatitis, epididymitis, meningitis, encep halitis, pulmonary embolism, CVA, thyroid storm, pancreatitis, adrenal crisis, cavernous sinus thrombosis, this is not meant to be an all-inclusive list. EKG interpreted by me (3pts min.). @ -As above X-rays interpreted by me (1pt min.). @ -None done CT interpreted by me (1pt min.). @ -None done U/S interpreted by me (1pt. min.). @ -None done What testing was considered but not performed or refused? (CT, X-rays, U/S, labs)? Why? @ -None What meds were considered but not given or refused? Why? @ -None Did you discuss the management of the patient with other professionals (professionals i.e. DrThi, PA, HAND ROLLER ENGRAVER, lab, RT, psych nurse, social media specialist, chicken picker, teacher, animal services officer, manager aviation)? Give summary @ -I spoke with Dr. Basurto and he wanted the patient transferred to [facility]. I spoke with Dr. Erickson at [facility] ER and he accepted the transfer. Was smoking cessation discussed for >3mins.? @ -No Was critical care preformed (if so, how long)? @ -No Were there social determinants of health that impacted care today? How? (Homelessness, low income, unemployed, alcoholism, drug addiction, transpor tation, low edu. Level, literacy, decrease access to med. care, care home, rehab)? @ -No Was there de-escalation of care discussed even if they declined (Discuss DNR or withdrawal of care, Hospice)? DNR status @ -No What co-morbidities impacted this encounter? (DM, HTN, Smoking, COPD, CAD, Cancer, CVA, ARF, Chemo, Hep., AIDS, mental health diagnosis, sleep apnea, morbid obesity)? @ -None Was patient admitted / discharged? Hospital course, mention meds given and route, prescriptions, significant lab abnormalities, going to OR and other pertinent info. @ -Is given 2 g Rocephin patient is getting a CT of the chest and the patient will be transferred to [facility] for further IV antibiotics and possible drainage per Dr. Jacobs. Undiagnosed new problem with uncertain prognosis? @ -No Drug Therapy requiring intensive monitoring for toxicity (Heparin, Nitro, Insulin, Cardizem)? @ -No Were any procedures done? @ -No Diagnosis/symptom? @ -Postop infection breast Acute, or Chronic, or Acute on Chronic? @ -Acute Uncomplicated (without systemic symptoms) or Complicated (systemic symptoms)? @ -Complicated Side effects of treatment? @ -No Exacerbation, Progression, or Severe Exacerbation? @ -No Poses a threat to life or bodily function? How? (Chest pain, USA, MA, pneumonia, PE, COPD, DKA, ARF, appy, cholecystitis, CVA, Diverticulitis, Homicidal, Suicidal, threat to staff... and all critical care pts) @ -Yes this could lead to potential sepsis and - Lab Data Result diagrams: 12/09/22 11:21 12/09/22 11:21 Lab Results 12/09/22 12/09/22 12/09/22 Range/Units 11:21 11:21 13:44 WBC 18.0 H (3.8-10.6) k/uL RBC 4.00 (3.80-5.40) m/uL Hgb 12.9 (11.4-16.0) gm/dL Hct 37.6 (34.0-46.0) % MCV 94.1 (80.0-100.0) fL MCH 32.2 (25.0-35.0) pg MCHC 34.2 (31.0-37.0) g/dL RDW 12.8 (11.5-15.5) % Plt Count 177 (150-450) k/uL MPV 7.4 Neutrophils % (Manual) 85 % Band Neuts % (Manual) 3 % Lymphocytes % (Manual) 7 % Monocytes % (Manual) 4 % Eosinophils % (Manual) 1 % Neutrophils # (Manual) 15.80 H (1.3-7.7) k/uL Lymphocytes # (Manual) 1.26 (1.0-4.8) k/uL Monocytes # (Manual) 0.72 (0-1.0) k/uL Eosinophils # (Manual) 0.18 (0-0.7) k/uL Nucleated RBCs 0 (0-0) /100 WBC Manual Slide Review Performed Sodium 133 L (137-145) mmol/L Potassium 3.8 (3.5-5.1) mmol/L Chloride 99 (98-107) mmol/L Carbon Dioxide 21 L (22-30) mmol/L Anion Gap 13 mmol/L BUN 27 H (7-17) mg/dL Creatinine 0.93 (0.52-1.04) mg/dL Est GFR (CKD-EPI)AfAm 75 (>60 ml/min/1.73 sqM) Est GFR (CKD-EPI)NonAf 65 (>60 ml/min/1.73 sqM) Glucose 104 H (74-99) mg/dL Plasma Lactic Acid Navarro 0.9 (0.7-2.0) mmol/L Calcium 8.2 L (8.4-10.2) mg/dL Total Bilirubin 1.0 (0.2-1.3) mg/dL AST 38 H (14-36) U/L ALT 30 (4-34) U/L Alkaline Phosphatase 71 (38-126) U/L Total Protein 6.2 L (6.3-8.2) g/dL Albumin 3.4 L (3.5-5.0) g/dL Disposition Clinical Impression: Cellulitis of drainage site following surgery Disposition: OTHER INSTITUTION NOT DEFINED Referrals: Puneet Ren DO [Primary Care Provider] - 1-2 days Time of Disposition: 13:42 - Out of Hospital Transfer - Req. Specs Out of Hospital Transfer - Requested Specifics: Other Emergency Center ([facility])
--- NOTE | 2022-12-09 14:05 | CT ---
EXAMINATION TYPE: CT chest w con CT DLP: 302.7 mGycm, Automated exposure control for dose reduction was used. DATE OF EXAM: 12/09/2022 1:44 PM COMPARISON: Chest radiograph 12/08/2022. CLINICAL INDICATION:Female, 67 years old with history of Infected drain, abscess; PHH, abscess draina ge tube pain TECHNIQUE: Multiple axial images were obtained through the chest following the administration of 100 cc of Isovue 300. . Coronal and sagittal reformats reviewed. FINDINGS: LUNGS/ PLEURA: No pleural effusion, pneumothorax, focal consolidation. No suspicious pulmonary nodule or mass. AIRWAY: Patent and unremarkable.. HEART: Size within normal limits. . MEDIASTINUM: No gross evidence of adenopathy. VASCULATURE: No aortic aneurysm. No evidence of pulmonary embolism. MUSCULOSKELETAL: Mild disc degeneration changes are present throughout the thoracolumbar spine.. No a cute osseous adenopathy. Partial visualization of lumbar fusion changes. No acute osseous abnormality . SOFT TISSUES/LYMPH NODES: Postsurgical changes from right axillary lymph node dissection and bilatera l mastectomies. Bilateral breast implants identified. Bilateral surgical drains identified within the anterior chest wall remaining near midline in the retropectoral region. There is inflammatory change s along the left anterior chest wall and lateral chest wall. There is a 7.9 x 2.3 cm fluid collection superior to the left implant (series 201, image 16). No gas within the collection. No significant in flammatory changes involving the right chest wall. LOWER NECK: No significant findings.. UPPER ABDOMEN: Distention of the partially visualized gallbladder with some intrahepatic biliary duct dilatation identified. Small hiatal hernia. IMPRESSION: 1. Postsurgical changes from bilateral mastectomy with bilateral breast implants and bilateral surgic al drains in the anterior chest wall medial to the implants. Marked inflammatory changes with a 7.9 x 2.3 cm fluid collection superior to the left implant concerning for abscess. 2. Distention of the partially visually gallbladder with some intrahepatic biliary duct dilatation. C orrelation with obstructive biliary labs is recommended.
[2022-12-09 14:38] VITALS: BP 99/58; PULSE 85; RESP 16
== END 2022-12-09 14:40 | disposition other institution (70) ==
LOC: EC 10:13
DX: T81.49XA Infection following a procedure, other surgical site, initial encounter (principal); I10 Essential (primary) hypertension; J44.9 Chronic obstructive pulmonary disease, unspecified; Z87.891 Personal history of nicotine dependence; Z79.899 Other long term (current) drug therapy; Z91.048 Other nonmedicinal substance allergy status
CPT/HCPCS: 36415; 80053; 83605; 85025; 87040; 71260; 99284; 96374; 96361; J0696; Q9967

== ENCOUNTER 2023-02-12 08:08 | Day surgery (SDC) | payer MEDICARE, OTHER ==
[2023-02-12] MEDS ORDERED: MIDAZOLAM 2 MG/2 ML VIAL IV PRN (08:24)
[2023-02-12] MEDS ORDERED: DEXAMETHASONE SOD PHOSPHATE 4 MG/ML 1 ML VIAL IV ONE (08:24)
[2023-02-12] MEDS ORDERED: LACTATED RINGERS 1,000 ML IV SCH (08:24)
[2023-02-12] MEDS ORDERED: LIDOCAINE 1% (10MG/ML) FOR IV START INTRADERMA PRN (08:24)
[2023-02-12] MEDS ORDERED: ONDANSETRON 4 MG/2 ML VIAL IVP ONE (08:24)
[2023-02-12] MEDS ORDERED: MIDAZOLAM 2 MG/2 ML VIAL ONE (09:52)
[2023-02-12] MEDS ORDERED: KETAMINE HCL IN 0.9 % NACL 50 MG/5 ML SYRINGE ONE (09:52)
[2023-02-12] MEDS ORDERED: PROPOFOL 10 MG/ML 20 ML VIAL IV ONE (09:52)
[2023-02-12] MEDS ORDERED: SUCCINYLCHOLINE CHLORIDE 200 MG/10 ML VIAL IV ONE (09:52)
[2023-02-12] MEDS ORDERED: fentaNYL (PF) 50 MCG/ML 2 ML AMP ONE (09:52)
[2023-02-12] MEDS ORDERED: ceFAZolin 1,000 MG VIAL ONE (09:52)
[2023-02-12] MEDS ORDERED: SODIUM CHLORIDE 0.9% 100 ML BAG ONE (09:52)
[2023-02-12] MEDS ORDERED: LIDOCAINE 1% INJ 10MG/ML (20 ML MDV) ONE (09:52)
[2023-02-12] MEDS ORDERED: PHENYLEPHRINE-0.9% NACL SYG 1,000 MCG/10 ML SYRINGE ONE (09:52)
[2023-02-12] MEDS ORDERED: SODIUM CHLORIDE 0.9% 100 ML with ceFAZolin 2,000 MG IV ONE ×2 (09:57)
[2023-02-12] MEDS: HYDROmorphone 0.5 MG/0.5 ML SYRINGE IVP PRN ×3 (11:40→12:02)
[2023-02-12 11:43] VITALS: TEMP 97.2
[2023-02-12] MEDS ORDERED: HYDROcodone/APAP 5-325MG 1 EACH TAB ONE (12:45)
[2023-02-12] MEDS ORDERED: HYDROcodone/APAP 5-325MG 1 EACH TAB PO ONE (12:46)
[2023-02-12 13:21] VITALS: BP 169/73; PULSE 74; RESP 18
--- NOTE | 2023-02-12 18:40 | OP ---
OPERATIVE REPORT DATE OF SERVICE : 02/12/2023 PREOPERATIVE DIAGNOSES: 1. Personal history of breast cancer. 2. Acquired absence, right and left breasts. 3. Acquired deformity, left reconstructed breast with malfunction of tissue syrup mixer helper. POSTOPERATIVE DIAGNOSES: 1. Personal history of breast cancer. 2. Personal history of bilateral mastectomy. 3. Acquired deformity, left reconstructed breast with malfunction of tissue syrup mixer helper. OPERATIVE PROCEDURES: Exploration, left reconstructed breast with replacement of tissue syrup mixer helper for left breast reconstruction with subsequent outpatient expansion. OPERATIVE INDICATIONS: The patient is a 67-year-old female, who has a past history of breast cancer treated with bilateral mastectomies and immediate reconstruction many years ago. 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 She underwent revisional surgery with removal of the breast implants and associated scar tissue and due to loss of domain from the scar contracture required placement of tissue expanders. The patient's postoperative course was then complicated by delayed seroma with cellulitis, left reconstructed breast, treated with first oral antibiotics, then hospital IV antibiotics. She did improve and was undergoing outpatient expansion. However, the left-sided syrup mixer helper has not expanded properly. It is rotated approximately 90 degrees with a hard edge and impending exposure of the syrup mixer helper. I have counseled the patient to undergo today's surgery to remove this malfunctioning tissue syrup mixer helper with revision of reconstructed breast and insertion of new tissue syrup mixer helper to continue reconstructive process for her breast reconstruction. The patient is aware of potential risks and complications including, but not limited to postoperative infection, seroma, hematoma, wound healing problems, among others. She has requested I perform the surgery. OPERATIVE PROCEDURE SUMMARY: The patient was seen in the preoperative area, markings were made, procedure was reviewed, and all questions were answered. She was transported to the operative room, where she was placed in supine position. Following induction of general anesthesia, the patient was prepped and draped in usual fashion. The left mastectomy scar was identified. A diagram was drawn with a skin marker over the scar, and then an incision was made in transverse fashion with a 10-blade scalpel dividing the skin in full- thickness fashion followed by dividing the subcutaneous tissue with cautery, then elevation of skin and subcutaneous tissue flaps off the underlying muscle flap tissue. The muscle flap was robust and intact. A second incision was placed transversely offsetting from the first incision at the skin level to expose the syrup mixer helper. The syrup mixer helper was removed. The syrup mixer helper was rotated 90 degrees and contorted. The scar tissue surrounding the syrup mixer helper was hypertrophic and thickened. Dissection was now performed elevating the prior muscle flap and dividing the scar tissue present in multiple cruciate directions. Once a sufficient size reconstructive cavity was created, irrigation was performed with pulsed irrigation unit with several liters of fluid intermittently stopping to optimize hemostasis with cautery. Excellent hemostasis was obtained. A 19 Carroll channel drain was inserted into the reconstructive cavity, brought out through separate stab incision in the left anterolateral chest wall, and sutured in place with 2-0 Prolene. The drain was cut to appropriate length. An syrup mixer helper was opened on the field after changing surgeon's gloves. Zeinae Tissue Photoresist Contact Printer, reference #[id number], serial #[id number], was oped on the field. The device was only handled by the surgeon. All air was extracted, and 50 mL of 0.9 normal saline was instilled. The syrup mixer helper was inserted into the reconstructive cavity. Once orientation was assured, suture tabs were used to secure to the chest wall with 3-0 Vicryl. The muscle flap tissue was then closed over the syrup mixer helper using interrupted 3-0 Vicryl suture followed by closure of the incision approximating the deep dermis using inverted interrupted 4-0 Monocryl and then completing the superficial dermal and epidermal closure with running 5-0 Prolene. Surgical field was cleansed with saline and dried. Postoperative bandages were placed using 1-inch sterile paper tape and 4 x 4's and secured with 3M Medipore tape. Drain sponges were placed as well. The drain was connected to close bulb suction and patent. The patient was then awakened from her anesthetic, extubated, and transferred to the recovery room in good condition and stable vital signs. There were no complications ESTIMATED BLOOD LOSS: 25 mL. MMODL / IJN: [id number] /
== END 2023-02-12 14:03 | disposition home or self-care (01) ==
LOC: OR 08:08
PROVIDERS: ATTEND Plastic Surgery
DX: T85.49XA Other mechanical complication of breast prosthesis and implant, initial encounter (principal); N65.0 Deformity of reconstructed breast; Z85.3 Personal history of malignant neoplasm of breast; Z90.13 Acquired absence of bilateral breasts and nipples; Y83.8 Other surgical procedures as the cause of abnormal reaction of the patient, or of later complication, without mention of misadventure at the time of the procedure
CPT/HCPCS: 19357; J1100; J2405; J0690; J1170

== ENCOUNTER → 2023-09-24 | Day surgery (SDC) | payer MEDICARE, OTHER ==
[~2023-09-24] MED LIST changes: -DEXAMETHASONE SOD PHOSPHATE 4 MG/ML 1 ML VIAL IV ONE; +HYDROmorphone 0.5 MG/0.5 ML SYRINGE IVP PRN; -LACTATED RINGERS 1,000 ML IV SCH; +LIDOCAINE 1% INJ 10MG/ML (20 ML MDV) ONE; +MIDAZOLAM 2 MG/2 ML VIAL IV PRN; +MIDAZOLAM 2 MG/2 ML VIAL ONE; -ONDANSETRON 4 MG/2 ML VIAL IVP ONE; +PHENYLEPHRINE-0.9% NACL SYG 1,000 MCG/10 ML SYRINGE ONE; +PROPOFOL 10 MG/ML 20 ML VIAL IV ONE; -Pre Op ABX Message 1 EACH MISC MISCELLANE ONE; +ROCURONIUM 10 MG/ML (5 ML VIAL) IV ONE; +SUCCINYLCHOLINE CHLORIDE 200 MG/10 ML VIAL IV ONE; -droPERidol 5 MG/2 ML VIAL IVP ONE; +ePHEDrine 50 MG/ML 1 ML VIAL ONE; +fentaNYL (PF) 50 MCG/ML 2 ML AMP IVP PRN; +fentaNYL (PF) 50 MCG/ML 2 ML AMP ONE
[2023-09-24] MEDS: IV FLUID CONTINUATION 1,000 ML IV ONE (08:02)
[2023-09-24] MEDS: ONDANSETRON 4 MG/2 ML VIAL IVP ONE (08:16)
[2023-09-24] MEDS: DEXAMETHASONE SOD PHOSPHATE 4 MG/ML 1 ML VIAL IV ONE (08:16)
[2023-09-24] MEDS: LACTATED RINGERS 1,000 ML IV SCH (08:16)
[2023-09-24] MEDS: LACTATED RINGERS 1,000 ML IV ONE (11:50)
[2023-09-24 13:29] VITALS: RESP 16; TEMP 96.9
--- NOTE | 2023-09-24 13:41 | OP ---
OPERATIVE REPORT DATE OF SERVICE : 09/24/2023 PREOPERATIVE DIAGNOSES: 1. 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 2. Personal history of breast cancer. 3. 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 4. 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 POSTOPERATIVE DIAGNOSES: 1. 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 2. Personal history of breast cancer. 3. 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 4. 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 OPERATIVE PROCEDURES: 1. Replace right reconstructed breast tissue molder punch, silicone breast implant for right breast reconstruction. 2. Revision right reconstructed breast. 3. Replace left reconstructed breast tissue molder punch with silicone breast implant for left breast reconstruction. 4. Revision of left reconstructed breast. 5. Reconstruction of right and left breast inframammary fold via local advancement flaps, 134 sq cm combined area. OPERATIVE INDICATIONS: The patient is a 68-year-old female who underwent mastectomy procedures in 1987 elsewhere. She underwent reconstruction at the time that has complicated and required several surgeries. She was seen in my office with capsular contractures, distorted misshapen breast, and desired to proceed with optimizing a reconstructive result. The patient's implants removed, tissue expanders placed. She did suffer a seroma involving the left side that required replacement of the molder punch. She has completed subsequent expansion, although, there was significant asymmetries due to the expansion process and differences that presented with her breast. She is undergoing second-stage breast reconstruction today with replacement of tissue molder punch, silicone breast implants, revision of reconstructed breast, optimize shape and form and symmetry, and reconstruction of inframammary folds that have been effaced. She is aware of potential risks and complications including those related to breast implants as well as surgery such as hematoma, seroma, wound healing problems, infection, among others. She has requested I perform the surgery. OPERATIVE PROCEDURE SUMMARY: The patient was seen in the preoperative area, markings made, procedure reviewed, all questions answered. She was transported to the operating room, where she was placed in supine position. Following induction of general anesthesia, the patient was prepped and draped in the usual fashion. Markings for incisions were placed at the patient's prior mastectomy scars located upper pole and transverse on both sides. Following marking on the right side, incision was made with a 10 blade scalpel and the subcutaneous tissue divided with cautery. The skin, subcutaneous tissue, muscle flap tissue present were elevated off the graft layer. Extensive dissection was required to allow for optimal redraping and shaping at the end of the procedure and to release contour irregularities. Once this was completed, a lower transverse incision was made through the capsular graft layer exposing the molder punch. Diffusion Furnace Operator was removed, intact. The expansion cavity appeared normal with no granulation tissue. No exudate. Small amount of serous fluid. A complete capsulotomy incision was made where the capsule joined the chest wall. Multiple cruciate incisions through the capsular structure were performed to release tightness. The site was irrigated with saline and packed open with laparotomy sponges. Attention was turned towards the left side, following the diagram for incision. Incision made, dividing the skin in full-thickness fashion and subcutaneous tissue divided with cautery. Areas of muscle flap remained present. These were elevated off the graft layer from prior surgeries including skin, subcutaneous tissue, muscle flaps other areas of skin, subcutaneous tissue flaps only. Extensive dissection was required to release contour irregularities and to optimize shape and redrape at the end of the procedure. A lower transverse incision was made through the graft, muscle flap layer exposing the molder punch. Diffusion Furnace Operator was removed intact. The cavity appeared normal with no granulation tissue. No exudates. Small amount of serous fluid. Capsulotomy incision was made, not quite circumferential. The lateral portion was not incised as this area was too large and will require internal capsular sutures to narrow. Capsulotomy incisions made inferiorly, medially, and superiorly, and then cruciate incisions through the capsular structure in these areas as well. Internal lateral capsular sutures were then placed to narrow the cavity as measured on the right side. Interrupted and short running 2-0 Vicryl sutures were used in 2 layers. With this complete, the inframammary fold flaps were not created. The left-sided flap was slightly larger and it required more space and measuring 28 x 3 sq cm and the right-sided flap was 25 x 2 sq cm. These inframammary fold flaps were elevated through the inframammary port area of the capsulotomy incision, elevating skin and subcutaneous tissue flaps off the chest wall and advanced in cephalad fashion, securing to rib periosteal tissue using interrupted 2- 0 Vicryl sutures in multiple locations creating a discrete inframammary folds and they were in symmetrical locations. Irrigations performed, hemostasis optimal on each side. Multiple breast implant Sizer was opened on the field. Ultimately, a 430 mL sizers appeared optimal for each reconstructive site. The sizers removed. Cavities were irrigated. Hemostasis optimal. Gloves changed and breast implants were opened on the field. Both implants were from the [employer] MemoryGel Boost breast implant, smooth, moderate-profile silicone gel filled measuring 430 mL, reference number [id number]. The left-sided serial number was [id number] and the right-sided serial number is [id number]. The left-sided device was opened 1st and irrigated with saline and then using a Edge funnel no-touch technique passed into the reconstructive cavity. The right- sided implant was opened after that and using the same Edge funnel no-touch technique placed in the reconstructive cavity on the right side. The graft muscle flap layers were then approximated over the breast implants using interrupted and short running 3-0 Vicryl sutures on each side. The incisions were now closed, approximated deep dermis using inverted interrupted 4-0 Monocryl and then closure of superficial dermis and epidermis with running 5-0 Prolene in each side. Surgical springer were cleansed with saline, dried, and postoperative bandages were placed using Kerlix squares secured with 3 Medipore tape and then positioned size 3 white mammary support with additional gauze padding to the lateral aspect of each reconstructive site. The patient was then awakened from anesthetic, extubated in the operating room, transferred to recovery room in good condition with stable vital signs. ESTIMATED BLOOD LOSS: 30 cc. COMPLICATIONS: There were no complications. NAVDEEPL / MADDIN: [id number] /
[2023-09-24 13:50] VITALS: BP 121/65; PULSE 95
== END | disposition home or self-care (01) ==
LOC: OR 06:51
PROVIDERS: ATTEND Plastic Surgery
DX: N65.0 Deformity of reconstructed breast (principal); Z85.3 Personal history of malignant neoplasm of breast; Z90.13 Acquired absence of bilateral breasts and nipples; I10 Essential (primary) hypertension; J44.9 Chronic obstructive pulmonary disease, unspecified; K21.9 Gastro-esophageal reflux disease without esophagitis; Z87.891 Personal history of nicotine dependence; Z91.09 Other allergy status, other than to drugs and biological substances; F41.8 Other specified anxiety disorders; Z79.899 Other long term (current) drug therapy
CPT/HCPCS: 11970; 19380; 14301; J2250; J0330; J1100; J0690; J2405; J2001; J3010; J2704; J2371